=== PATIENT | female | born 1995 | race Caucasian/White ===

== ENCOUNTER 2018-02-26 16:35 | Emergency (ER) | payer OTHER, SELFPAY ==
[2018-02-26 16:39] VITALS: BP 130/90; PULSE 77; RESP 18; TEMP 35.8; O2SAT 99; BMI 22.6
--- NOTE | 2018-02-26 17:04 | ED.NAVMDI ---
HPI - Nausea/Vomiting/Diarrhea General Chief complaint: Nausea/Vomiting/Diarrhea Stated complaint: withdrawl symptoms Time Seen by Provider: 02/26/18 17:04 Source: patient Mode of arrival: ambulatory Limitations: no limitations History of Present Illness HPI Narrative: 22-year-old female 5-6 days since taking her last dose of Lexapro given to the fact that she has not had it here for evaluation of approximately 12 hr of intractable nausea and vomiting. Has not tried anything for this prior to arrival. No urinary symptoms. Is having some abdominal pain but is from all the retching. No chest pain. No change in bowel. Related Data Home Medications Medication Instructions Recorded Confirmed escitalopram oxalate 10 mg PO DAILY 02/26/18 02/26/18 omeprazole 1 cap PO QAM 02/26/18 Previous Rx's Medication Instructions Recorded ondansetron 4 mg PO Q6-8H PRN #10 tab 02/26/18 Allergies Allergy/AdvReac Type Severity Reaction Status Date / Time No Known Drug Allergies Allergy Verified 02/26/18 16:39 Review of Systems Constitutional Denies fever(s) and Denies headache(s) ENT Ears, Nose, Mouth, and Throat: Denies headache(s) Cardiovascular Denies chest pain and Denies dyspnea Respiratory Denies dyspnea Gastrointestinal Gastrointestinal: Reports abdominal pain, Denies change in bowel habits, Reports nausea and Reports vomiting Genitourinary Denies dysuria, Denies urinary hesitancy, Denies urinary urgency and Denies vaginal discharge Integumentary/Breasts Denies lesions and Denies rash Neurologic Denies confusion and Denies headache(s) Psychiatric Denies confusion PFSH Medical History Gastroesophageal reflux disease (Acute) Surgical History No pertinent past surgical history (Acute) Exam Initial Vital Signs Initial Vital Signs: Vital Signs Temperature 96.5 F L 02/26/18 16:39 Pulse Rate 77 02/26/18 16:39 Respiratory Rate 18 02/26/18 16:39 Blood Pressure 130/90 02/26/18 16:39 Pulse Oximetry 99 02/26/18 16:39 Const General: No comfortable (Uncomfortable), well developed and well groomed Orientation: alert HENMT Head: normal to inspection and normocephalic Resp Effort & Inspection: normal respiratory effort Auscultation: clear to auscultation bilaterally Cardio Rate: tachycardic Rhythm: regular rhythm Pulses: radial pulses present GI Inspection: non-distended Palpation: soft, No firm, No guarding and tender (Generalized tenderness without rebound) Back/Spine/Pelvis Back: No CVA tenderness Skin Lesions: no lesions Rashes: no rashes Neuro General: alert, awake and oriented x3 Extrem General: normal to inspection and capillary refill normal Psych Appearance: grossly normal and well kempt Course Orders Ordered: ED Orders 02/26/18 16:47 Complete Blood Count AUTO DIFF Stat Comprehensive Metabolic Panel Stat Lipase Stat Test Serum,Qual Stat Discontinued Medications Sodium Chloride (Normal Saline 0.9%) 1,000 mls @ 1,000 mls/hr IV BOLUS ONE Stop: 02/26/18 18:07 Last Infusion: 02/26/18 18:43 Dose: 0 mls/hr Infusion: 02/26/18 18:43 Dose: 0 mls/hr Admin: 02/26/18 17:14 Dose: 1,000 mls/hr Lorazepam (Ativan) 1 mg IV NOW ONE Stop: 02/26/18 18:59 Last Admin: 02/26/18 19:12 Dose: 1 mg Metoclopramide HCl (Reglan) 10 mg IV NOW ONE Stop: 02/26/18 17:39 Last Admin: 02/26/18 17:47 Dose: 10 mg Ondansetron HCl (Zofran) 4 mg IV NOW ONE Stop: 02/26/18 17:09 Last Admin: 02/26/18 17:14 Dose: 4 mg Vital Signs - 8 hr 02/26/18 16:39 Temperature 96.5 F L Pulse Rate 77 Respiratory Rate 18 Blood Pressure 130/90 Pulse Oximetry 99 MDM - Nausea/Vomiting/Diarrhea Lab Data Attestation: I reviewed the patient's lab results. Result diagrams: 02/26/18 16:47 02/26/18 16:47 Lab Results 02/26/18 02/26/18 02/26/18 Range/Units 16:47 16:47 16:47 WBC 18.9 H (4.5-11.0) X10^3/uL RBC 5.21 H (4.0-5.2) X10^6/uL Hgb 14.0 (12.0-16.0) g/dL Hct 43.0 (36-46) % MCV 82.7 (80-100) fL MCH 26.9 (26-34) PG MCHC 32.6 (30-36) % RDW 13.0 (11.6-14.8) % Plt Count 258 (150-400) X10^3/uL Neut % (Auto) 85.1 H (50-75) % Lymph % (Auto) 10.8 L (25-40) % [place] % (Auto) 3.6 (3-14) % Eos % (Auto) 0.1 L (2-4) % Baso % (Auto) 0.4 (0-2) % Neut # (Auto) 27605 H (7396-7736) /uL Sodium 144 (137-145) mmol/L Potassium 3.6 (3.4-5.1) mmol/L Chloride 107 (98-107) mmol/L Carbon Dioxide 23 (22-32) mmol/L BUN 10 (7-17) mg/dL Creatinine 0.60 (0.52-1.04) mg/dL Estimated GFR > 60.0 (>60) mL/min BUN/Creatinine Ratio 16.7 (6-22) Glucose 153 H (70-100) mg/dL Calcium 10.0 (8.4-10.2) mg/dL Total Bilirubin 0.5 (0.2-1.3) mg/dL AST 71 H (14-36) IU/L ALT 27 (9-52) IU/L Alkaline Phosphatase 80 (38-126) U/L Total Protein 8.5 H (6.3-8.2) g/dL Albumin 5.1 H (3.5-5.0) g/dL Globulin 3.4 (1.7-4.1) g/dL Albumin/Globulin Ratio 1.5 (1.0-2.8) Lipase 51 (23-300) U/L Serum , Qual Negative (Negative) MDM Narrative Medical decision making narrative: Patient is afebrile. Has a benign abdominal exam. No CVA tenderness. Does have a leukocytosis. This could be secondary to the extensive vomiting and demargination because of this. Will hold on CT scan or any other radiologic studies for now. Patient did feel much better after Zofran and Reglan and Ativan here in the ER. She was able to tolerate oral intake. She does have her medication with her. Will send home with a prescription for Zofran. She was given return precautions. If she does return I would consider an intra-abdominal pathology given the vomiting and also the elevated white blood cell count and would consider radiologic studies of warranted. Patient and family who are at bedside all expressed understanding and agreement with this plan. Discharge Plan Departure Patient Disposition: Home Clinical Impression: Nausea & vomiting Instructions: DI for Vomiting -- Adult Activity Restrictions/Additional Instructions: I would recommend small amounts of fluid over longer periods of time to stay hydrated. Take the nausea medication that you were given a prescription for as needed and as directed. Continue all of your home medications. Return to the emergency department for any new symptoms, fevers, abdominal pain, inability to tolerate oral intake despite the nausea medication or any other concerning symptoms. Prescriptions: New ondansetron 4 mg tablet,disintegrating 4 mg PO Q6-8H PRN (Reason: nausea and vomiting) Qty: 10 RF: 0 No Action omeprazole 20 mg capsule,delayed release(DR/EC) 1 cap PO QAM RF: 0 escitalopram oxalate 10 mg tablet 10 mg PO DAILY RF: 0
--- NOTE | 2018-02-26 17:08 | PC.NURSE ---
Pt is very pale. Pt states that she hasn't taken her lexapro in a few days. Pt now having nausea/vomiting today.
[2018-02-26] MEDS: SODIUM CHLORIDE 0.9% 1,000 ML 1000 ML IV (17:14)
[2018-02-26] MEDS: ONDANSETRON 4 MG/2 ML INJ IV (17:14)
[2018-02-26 17:21] LABS: Pregnancy Test Serum,Qual Negative (Negative)
[2018-02-26 17:23] LABS: Add Manual Diff / Slide Review NO; Basophils Percent Auto 0.4 % (0-2); Eosinophils Percent Auto 0.1 % (2-4); Lymphocytes Percent Auto 10.8 % (25-40); Mean Corpuscular HGB Conc 32.6 % (30-36); Mean Corpuscular Hemoglobin 26.9 PG (26-34); Mean Corpuscular Volume 82.7 fL (80-100); Monocytes Percent Auto 3.6 % (3-14); Neutrophils Absolute Auto 16100 /uL (3000-5900); Neutrophils Percent Auto 85.1 % (50-75); Platelet Count 258 X10^3/uL (150-400); Red Blood Cell Count 5.21 X10^6/uL (4.0-5.2); White Blood Cell Count 18.9 X10^3/uL (4.5-11.0)
[2018-02-26 17:24] LABS: Alanine Aminotransferase 27 IU/L (9-52); Albumin 5.1 g/dL (3.5-5.0); Albumin Globulin Ratio 1.5 (1.0-2.8); Alkaline Phosphatase 80 U/L (38-126); Aspartate Aminotransferase 71 IU/L (14-36); BUN Creatinine Ratio 16.7 (6-22); Bilirubin Total 0.5 mg/dL (0.2-1.3); Blood Urea Nitrogen 10 mg/dL (7-17); Carbon Dioxide 23 mmol/L (22-32); Chloride 107 mmol/L (98-107); Estimated Glomerular Filt Rate > 60.0 mL/min (>60); Globulin 3.4 g/dL (1.7-4.1); Glucose 153 mg/dL (70-100); HEMOLYSIS 22 (0-50); Lipase 51 U/L (23-300); Potassium 3.6 mmol/L (3.4-5.1); Sodium 144 mmol/L (137-145); Total Protein 8.5 g/dL (6.3-8.2)
[2018-02-26] MEDS: METOCLOPRAMIDE 10 MG/2 ML INJ IV (17:47)
[2018-02-26] MEDS: LORazepam 2 MG/ML SYRINGE 1 MG IV (19:12)
[2018-02-26 19:57] VITALS: BP 128/77; PULSE 90; RESP 22; TEMP 36.8; O2SAT 100
[2018-02-26 21:08] VITALS: BP 124/73; PULSE 107; RESP 20; O2SAT 100
== END 2018-02-26 21:15 | disposition home or self-care (01) ==
PROVIDERS: Emergency Provider Emergency Medicine; Family Provider Pediatrics; PCP Pediatrics
DX: R11.2 Nausea with vomiting, unspecified (principal)
CPT/HCPCS: 36591; 80053; 83690; 84703; 85025; 96361; 96374; 96375; 99283; 99284; J2060; J2405; J2765

== ENCOUNTER 2018-02-28 12:14 | Emergency (ER) | payer OTHER, SELFPAY ==
[2018-02-28 12:17] VITALS: BP 140/96; PULSE 83; RESP 14; TEMP 36.9; O2SAT 98; BMI 22.6
[2018-02-28] MEDS: ONDANSETRON 4 MG/2 ML INJ IV (12:57)
[2018-02-28] MEDS: SODIUM CHLORIDE 0.9% 1,000 ML 1000 ML IV ×2 (12:57→14:08)
[2018-02-28 12:59] LABS: Add Manual Diff / Slide Review NO; Basophils Percent Auto 0.3 % (0-2); Eosinophils Percent Auto 0.1 % (2-4); Hematocrit 40.4 % (36-46); Hemoglobin 13.3 g/dL (12.0-16.0); Lymphocytes Percent Auto 8.6 % (25-40); Mean Corpuscular HGB Conc 32.9 % (30-36); Mean Corpuscular Hemoglobin 27.3 PG (26-34); Mean Corpuscular Volume 82.9 fL (80-100); Monocytes Percent Auto 3.1 % (3-14); Neutrophils Absolute Auto 13700 /uL (3000-5900); Neutrophils Percent Auto 87.9 % (50-75); Platelet Count 210 X10^3/uL (150-400); Red Blood Cell Count 4.88 X10^6/uL (4.0-5.2); Red Cell Distribution Width 13.1 % (11.6-14.8); White Blood Cell Count 15.6 X10^3/uL (4.5-11.0)
--- NOTE | 2018-02-28 13:01 | ED.NAVMDI ---
HPI - Nausea/Vomiting/Diarrhea General Chief complaint: Nausea/Vomiting/Diarrhea Stated complaint: VOMITING Time Seen by Provider: 02/28/18 12:38 Source: patient and family Mode of arrival: ambulatory Limitations: no limitations History of Present Illness HPI Narrative: Patient presents with chief complaint of nausea and vomiting. She states that this is been going on for several days and she was evaluated here on the . It was thought that her vomiting could be due to Lexapro withdrawal at that point time. She states she felt better for few hours after she got home but then felt worse again. She did not eat all yesterday. She has not been able to keep down fluids this morning. She denies any fevers or abdominal pain. She wonders if it is due to smoking marijuana. She has been smoking marijuana daily. this has been going on on and off for several years. Her mother is concerned as she had elevated white blood cell count her last visit. Mother is also concerned about chronic abdominal complaints. She states she was given a nausea prescription 2 days ago during her Emergency Department visit but she did not fill it no longer nose where it is. She denies any urinary symptoms. She denies possibility of . Related Data Home Medications Medication Instructions Recorded Confirmed escitalopram oxalate 10 mg PO DAILY 02/26/18 02/28/18 omeprazole 1 cap PO QAM 02/26/18 02/28/18 Previous Rx's Medication Instructions Recorded ondansetron 4 mg PO Q6-8H PRN #10 tab 02/26/18 ondansetron 4 mg PO TID-QID PRN #20 tab 02/28/18 Allergies Allergy/AdvReac Type Severity Reaction Status Date / Time No Known Drug Allergies Allergy Verified 02/28/18 12:20 Review of Systems Review of Systems GENERAL: Denies chills, fatigue, malaise, fever, sweats. HEENT: Denies sinus pain, ear pain, sore throat, difficulty swallowing, dizziness. RESPIRATORY: Denies dyspnea, cough, wheezing, hemoptysis, sputum. CARDIOVASCULAR: Denies chest pain, palpitations, orthopnea, edema, GASTROINTESTINAL: See HPI : Denies dysuria, frequency, incontinence, hematuria, urinary retention. MUSCULOSKELETAL: denies weakness, joint pain, or bony pain SKIN: Denies rash, skin lesions, or other NEUROLOGIC: Denies weakness, headache, numbness, change in speech, confusion, seizures, incoordination. PSYCHIATRIC: No concerning psychosocial issues. 12 point review of systems is negative except for those stated above [facility] Medical History Gastroesophageal reflux disease (Acute) Surgical History No pertinent past surgical history (Acute) Social History Smoking Status: Current some day smoker Exam Narrative Exam Narrative: GENERAL: thin, pale female sticking her finger down her throat On stretcher HEAD: Atraumatic. Normocephalic. No temporal or scalp tenderness. EYES: Pupils equal round and reactive. Extraocular motions intact. No scleral icterus. No injection or drainage. ENT: Nose without bleeding, purulent drainage or septal hematoma. Throat without erythema, tonsillar hypertrophy or exudate. Uvula midline. Airway patent. NECK: Trachea midline. No JVD or lymphadenopathy. Supple, nontender, no meningeal signs. CARDIOVASCULAR: Regular rate and rhythm without murmurs, gallops, or rubs. RESPIRATORY: Clear to auscultation. Breath sounds equal bilaterally. No wheezes, rales, or rhonchi. no cough on exam. No increased respiratory effort GASTROINTESTINAL: Abdomen soft, non-tender, nondistended. No hepato-splenomegaly, or palpable masses. active bowel sounds all 4 quadrants EXTREMITIES: No clubbing, cyanosis, or edema. No joint tenderness, effusion, or edema noted. BACK: Nontender without deformity or crepitance. No flank tenderness. NEURO: AOx3. SKIN: No rash or erythema. Initial Vital Signs Initial Vital Signs: Vital Signs Temperature 98.4 F 02/28/18 12:17 Pulse Rate 83 02/28/18 12:17 Respiratory Rate 14 02/28/18 12:17 Blood Pressure 140/96 H 02/28/18 12:17 Pulse Oximetry 98 02/28/18 12:17 Course Course Narrative: I checked on the patient and family several times throughout her stay in the emergency department Orders Ordered: ED Orders 02/28/18 15:40 Urine Microscopic Stat Discontinued Medications Sodium Chloride (Normal Saline 0.9%) 1,000 mls @ 1,000 mls/hr IV BOLUS ONE Stop: 02/28/18 13:49 Last Infusion: 02/28/18 14:42 Dose: 0 mls/hr Admin: 02/28/18 12:57 Dose: 1,000 mls/hr Sodium Chloride (Normal Saline 0.9%) 1,000 mls @ 1,000 mls/hr IV BOLUS ONE Stop: 02/28/18 14:52 Last Infusion: 02/28/18 16:03 Dose: 0 mls/hr Admin: 02/28/18 14:08 Dose: 1,000 mls/hr Lorazepam (Ativan) 1 mg IV NOW ONE Stop: 02/28/18 13:54 Last Admin: 02/28/18 14:08 Dose: 1 mg Metoclopramide HCl (Reglan) 10 mg IV NOW ONE Stop: 02/28/18 13:19 Last Admin: 02/28/18 13:38 Dose: 10 mg Ondansetron HCl (Zofran) 4 mg IV NOW ONE Stop: 02/28/18 12:53 Last Admin: 02/28/18 12:57 Dose: 4 mg Promethazine HCl (Phenadoz) 25 mg [place] NOW ONE Stop: 02/28/18 15:14 Vital Signs - 8 hr 02/28/18 14:43 02/28/18 16:00 Temperature 99.1 F Pulse Rate 103 H 91 H Respiratory Rate 18 20 Blood Pressure 136/66 Blood Pressure [Left Arm] 125/80 Pulse Oximetry 100 98 MDM - Nausea/Vomiting/Diarrhea Lab Data Attestation: I reviewed the patient's lab results. WBC is slightly improved since her visit 2 days ago. Could still be related to extensive vomiting. Result diagrams: 02/28/18 12:40 02/28/18 12:40 Lab Results 02/28/18 02/28/18 02/28/18 Range/Units 12:40 12:40 15:40 WBC 15.6 H (4.5-11.0) X10^3/uL RBC 4.88 (4.0-5.2) X10^6/uL Hgb 13.3 (12.0-16.0) g/dL Hct 40.4 (36-46) % MCV 82.9 (80-100) fL MCH 27.3 (26-34) PG MCHC 32.9 (30-36) % RDW 13.1 (11.6-14.8) % Plt Count 210 (150-400) X10^3/uL Neut % (Auto) 87.9 H (50-75) % Lymph % (Auto) 8.6 L (25-40) % [place] % (Auto) 3.1 (3-14) % Eos % (Auto) 0.1 L (2-4) % Baso % (Auto) 0.3 (0-2) % Neut # (Auto) 29497 H (6795-9496) /uL Sodium 145 (137-145) mmol/L Potassium 3.7 (3.4-5.1) mmol/L Chloride 105 (98-107) mmol/L Carbon Dioxide 25 (22-32) mmol/L BUN 18 H (7-17) mg/dL Creatinine 0.70 (0.52-1.04) mg/dL Estimated GFR > 60.0 (>60) mL/min BUN/Creatinine Ratio 25.7 H (6-22) Glucose 141 H (70-100) mg/dL Calcium 9.7 (8.4-10.2) mg/dL Total Bilirubin 1.1 (0.2-1.3) mg/dL AST 48 H (14-36) IU/L ALT 44 (9-52) IU/L Alkaline Phosphatase 57 (38-126) U/L Total Protein 8.1 (6.3-8.2) g/dL Albumin 5.0 (3.5-5.0) g/dL Globulin 3.1 (1.7-4.1) g/dL Albumin/Globulin Ratio 1.6 (1.0-2.8) Amylase 78 (30-110) U/L Lipase 49 (23-300) U/L Urine RBC 1-5/hpf (0-5/HPF) Urine WBC 0-1/hpf (0-5/HPF) Ur Squamous Epith Cells 1-5 /hpf Urine Bacteria None seen (None) Ur Culture Indicated? Cult not indicated Micro UA Comment Not Reportable Point of Care Testing Test Results Negative Urine Dip Bedside Urine Glucose Negative Bedside Urine Bilirubin - Negative Bedside Urine Ketone ++ 40 Urine Specific [place] 1.025 Bedside Urine Occult Blood +/- Bedside Urine pH 6.5 Bedside Urine Protein - Negative Bedside Urine Urobilinogen - Negative Bedside Urine Nitrite - Negative Bedside Urine Leukocytes - Negative Esterase MDM Narrative Medical decision making narrative: Patient presents with chief complaint of nausea and vomiting. She is still afebrile and has benign abdominal exam. Given her improvement the emergency department, she declined imaging at this point time. She was able to keep down crackers as well as fluids before discharge.She is happy with her reduced leukocytosis compared to her previous visit. I discussed at length follow up with her primary care provider in the next few days. I have discussed at length reduction in smoking marijuana and/or cessation of marijuana smoking. Given that this occurs after she smokes marijuana but does not occur on days after she does not smoke marijuana, I think it is very likely to be related. I encouraged a simple diet, use of prescription antinausea meds as needed. I replaced her Zofran prescription that she lost. I discussed return precautions of fever, worsening pain inability keep down fluids. She had no questions or concerns upon discharge. Discharge Plan Departure Patient Disposition: Home Clinical Impression: Nausea & vomiting Discharge Date/Time: 02/28/18 16:00 Interventions: ED Discharge Assessment Last Done: 02/28/18 16:00 Instructions: DI for Nausea -- Adult, DI for Vomiting -- Adult Activity Restrictions/Additional Instructions: Today we treated her nausea with several medications, gave you IV fluid and checked your labs. Your white blood cell count has decreased to a closer to normal level. I am giving her a nausea medication to take home. Please stop smoking weed every day, as I think this is contributing to your nausea and vomiting. Please come back to the emergency department if he develops any fevers or belly pain or concerning signs. Please follow-up with primary care provider and the next day or two. Please eat a simple diet of non spicy, non caffeinated and non acidic foods. Spicy, caffeinated and acidic foods can irritate your stomach. Given that you have a long history of abdominal issues, please follow-up with her primary care provider. A referral to a razor grinder may be warranted. Prescriptions: New ondansetron 4 mg tablet,disintegrating 4 mg PO TID-QID PRN (Reason: nausea and vomiting) Qty: 20 RF: 0 No Action omeprazole 20 mg capsule,delayed release(DR/EC) 1 cap PO QAM RF: 0 escitalopram oxalate 10 mg tablet 10 mg PO DAILY RF: 0 ondansetron 4 mg tablet,disintegrating 4 mg PO Q6-8H PRN (Reason: nausea and vomiting) Qty: 10 RF: 0 Referrals: Isiah Vale MD [Primary Care Provider] -
[2018-02-28 13:08] LABS: Alanine Aminotransferase 44 IU/L (9-52); Albumin Globulin Ratio 1.6 (1.0-2.8); Alkaline Phosphatase 57 U/L (38-126); Amylase 78 U/L (30-110); Aspartate Aminotransferase 48 IU/L (14-36); BUN Creatinine Ratio 25.7 (6-22); Bilirubin Total 1.1 mg/dL (0.2-1.3); Blood Urea Nitrogen 18 mg/dL (7-17); Calcium 9.7 mg/dL (8.4-10.2); Carbon Dioxide 25 mmol/L (22-32); Chloride 105 mmol/L (98-107); Estimated Glomerular Filt Rate > 60.0 mL/min (>60); Globulin 3.1 g/dL (1.7-4.1); Glucose 141 mg/dL (70-100); HEMOLYSIS < 15 (0-50); Lipase 49 U/L (23-300); Potassium 3.7 mmol/L (3.4-5.1); Sodium 145 mmol/L (137-145); Total Protein 8.1 g/dL (6.3-8.2)
[2018-02-28 13:35] VITALS: BP 139/96; PULSE 63; RESP 18; O2SAT 98
[2018-02-28] MEDS: METOCLOPRAMIDE 10 MG/2 ML INJ IV (13:38)
[2018-02-28] MEDS: LORazepam 2 MG/ML SYRINGE 1 MG IV (14:08)
[2018-02-28 14:43] VITALS: BP 125/80; PULSE 103; RESP 18; O2SAT 100
[2018-02-28 15:57] LABS: Bacteria Urine None Seen
[2018-02-28 16:00] VITALS: BP 136/66; PULSE 91; RESP 20; TEMP 37.3; O2SAT 98
[2018-02-28 16:06] LABS: Culture Indicated Urine Cult Not Indicated; RBC Urine 1-5/HPF (0-5/HPF); Squamous Epithelial Cell Urine 1-5 /HPF; WBC Urine 0-1/HPF (0-5/HPF)
== END 2018-02-28 16:00 | disposition home or self-care (01) ==
PROVIDERS: Emergency Provider Nurse Practitioner Family; Family Provider Pediatrics; PCP Pediatrics
DX: R11.2 Nausea with vomiting, unspecified (principal)
CPT/HCPCS: 36591; 80053; 81003; 81015; 81025; 82150; 83690; 85025; 96361; 96374; 96375; 99283; 99284; J2060; J2405; J2765